=== PATIENT | female | born 1975 | race Caucasian/White ===

== ENCOUNTER 2019-11-11 14:22 | Outpatient (CLI) | payer BC ==
[~2019-11-11] VITALS: Ht 167.6 cm; Wt 74.1 kg
== END 2019-11-11 17:00 | disposition home or self-care (01) ==
LOC: LDOP 14:22
PROVIDERS: ATTEND Obstetrics & Gynecology
DX: O09.93 Supervision of high risk pregnancy, unspecified, third trimester (principal); O26.893 Other specified pregnancy related conditions, third trimester; Z51.81 Encounter for therapeutic drug level monitoring
CPT/HCPCS: 59025; 76819; 99201; G0463

== ENCOUNTER 2019-11-27 06:18 | Inpatient (IN) | payer BC ==
[~2019-11-27] VITALS: Ht 167.6 cm; Wt 75.0 kg
[2019-11-27] MEDS ORDERED: OXYTOCIN 30U/ 0.9% NaCL 500ML 500 ML IV ONE (06:20)
[2019-11-27] MEDS: D5%-LACTATED RINGERS 1,000 ML IV SCH ×3 (06:20→22:20)
[2019-11-27] MEDS ORDERED: OXYTOCIN 30U/ 0.9% NaCL 500ML 500 ML IV PRN ×2 (06:20→23:23)
[2019-11-27] MEDS ORDERED: CALCIUM CARBONATE 500 MG TAB.CHEW PO PRN (06:30)
[2019-11-27] MEDS ORDERED: FENTANYL PF 100 MCG/2ML IV PRN (06:30)
[2019-11-27] MEDS ORDERED: ONDANSETRON 2MG/ML, 2ML IVPush PRN (06:30)
[2019-11-27] MEDS ORDERED: TERBUTALINE 1 MG/ML, 1ML IVPush PRN (06:30)
[2019-11-27] MEDS ORDERED: FENTANYL PF 100 MCG/2ML IVPush PRN (06:30)
[2019-11-27] MEDS ORDERED: TERBUTALINE 1 MG/ML, 1ML SQ PRN (06:30)
[2019-11-27 06:31] VITALS: BP 116/73
[2019-11-27] MEDS ORDERED: PREN-3 PO (06:39)
[2019-11-27] MEDS ORDERED: ASPI-515 PO (06:40)
[2019-11-27] MEDS: LACTATED RINGERS 1,000 ML IV SCH ×3 (06:48→23:32)
[2019-11-27] MEDS ORDERED: OXYTOCIN 30U/ 0.9% NaCL 500ML 500 ML ONE ×2 (06:52→23:25)
[2019-11-27] MEDS ORDERED: MISOPROSTOL 25 MCG TABLET ONE ×2 (06:52→15:12)
[2019-11-27 06:57] LABS: BASOPHILS # (AUTO) 0.05 x10^3/uL (0-0.1); BASOPHILS % (AUTO) 0 % (0-1); EOSINOPHILS # (AUTO) 0.14 x10^3/uL (0-0.4); EOSINOPHILS % (AUTO) 1 % (1-7); LYMPHOCYTES # (AUTO) 2.36 x10^3/uL (1-3.4); LYMPHOCYTES % (AUTO) 19 % (22-44); MD NO; MEAN CORPUSCULAR HGB CONC 31.8 g/dL (32.4-35.8); MEAN PLATELET VOLUME 8.7 fL (7.4-10.4); MONOCYTES # (AUTO) 1.12 x10^3/uL (0.2-0.8); MONOCYTES % (AUTO) 9 % (2-9); NEUTROPHILS # (AUTO) 8.54 x10^3/uL (1.8-6.8); NEUTROPHILS % (AUTO) 70 % (42-75); PLATELET COUNT 273 x10^3/uL (130-400); RED BLOOD COUNT 5.05 x10^6/uL (3.82-5.3); RED CELL DISTRIBUTION WIDTH 14.7 % (9.6-15.2)
[2019-11-27] MEDS: MISOPROSTOL 25 MCG TABLET VG PRN ×2 (07:50→15:20)
[2019-11-27 20:00] VITALS: BP 126/83
== END 2019-11-28 07:09 | disposition home or self-care (01) | DRG 833 ==
LOC: LDIP 06:18
PROVIDERS: ADMIT Obstetrics & Gynecology; ATTEND Obstetrics & Gynecology
PROC: 3E033VJ Introduction of Other Hormone into Peripheral Vein, Percutaneous Approach (ICD-10-PCS; principal; 2019-11-27)
DX: O62.0 Primary inadequate contractions (principal); D64.9 Anemia, unspecified; O09.513 Supervision of elderly primigravida, third trimester; Z3A.39 39 weeks gestation of pregnancy
CPT/HCPCS: 36415; 85025; 86592; 86850; 86900; 87635; G0378; J2590; J7120

== ENCOUNTER 2019-12-02 11:15 | Inpatient (IN) | payer BC ==
[~2019-12-02] VITALS: Ht 167.6 cm; Wt 74.5 kg
[~2019-12-02 11:15] MED LIST: ASPI-515 PO; PREN-3 PO
[2019-12-05] MEDS ORDERED: OXYTOCIN 30U/ 0.9% NaCL 500ML 500 ML IV ONE (20:21)
[2019-12-05] MEDS ORDERED: TERBUTALINE 1 MG/ML, 1ML SQ PRN (20:30)
[2019-12-05] MEDS ORDERED: FENTANYL PF 100 MCG/2ML IVPush PRN (20:30)
[2019-12-05] MEDS ORDERED: MISOPROSTOL 25 MCG TABLET VG PRN (20:30)
[2019-12-05] MEDS ORDERED: TERBUTALINE 1 MG/ML, 1ML IVPush PRN (20:30)
[2019-12-05] MEDS ORDERED: ALUMINUM/MAG/SIMETHICONE 30 ML UDC PO PRN (20:30)
[2019-12-05] MEDS ORDERED: CALCIUM CARBONATE 500 MG TAB.CHEW PO PRN (20:30)
[2019-12-05] MEDS ORDERED: ONDANSETRON 2MG/ML, 2ML IVPush PRN (20:30)
[2019-12-05 20:35] VITALS: BP 128/80
[2019-12-05 20:41] LABS: BASOPHILS # (AUTO) 0.09 x10^3/uL (0-0.1); BASOPHILS % (AUTO) 1 % (0-1); EOSINOPHILS # (AUTO) 0.15 x10^3/uL (0-0.4); EOSINOPHILS % (AUTO) 1 % (1-7); LYMPHOCYTES # (AUTO) 2.74 x10^3/uL (1-3.4); LYMPHOCYTES % (AUTO) 21 % (22-44); MD NO; MEAN CORPUSCULAR HEMOGLOBIN 24.3 pg (27.0-34.8); MEAN CORPUSCULAR HGB CONC 32.1 g/dL (32.4-35.8); MEAN CORPUSCULAR VOLUME 75.7 fL (80-100); MONOCYTES # (AUTO) 0.83 x10^3/uL (0.2-0.8); MONOCYTES % (AUTO) 6 % (2-9); NEUTROPHILS # (AUTO) 9.35 x10^3/uL (1.8-6.8); NEUTROPHILS % (AUTO) 71 % (42-75); PLATELET COUNT 286 x10^3/uL (130-400); RED BLOOD COUNT 5.33 x10^6/uL (3.82-5.3); RED CELL DISTRIBUTION WIDTH 14.7 % (9.6-15.2)
[2019-12-05] MEDS ORDERED: LIDOCAINE 1%, 20ML ONE (20:57)
[2019-12-05] MEDS ORDERED: MISOPROSTOL 200 MCG TABLET ONE (20:57)
[2019-12-05] MEDS ORDERED: MISOPROSTOL 25 MCG TABLET ONE (20:57)
[2019-12-05] MEDS ORDERED: PLEASE ENTER HEIGHT AND WEIGHT MC SCH (21:00)
[2019-12-06] MEDS: LACTATED RINGERS 1,000 ML IV SCH ×3 (01:10→17:22)
[2019-12-06 01:24] VITALS: BP 114/81
[2019-12-06] MEDS ORDERED: MISOPROSTOL 25 MCG TABLET ONE (02:26)
[2019-12-06] MEDS: D5%-LACTATED RINGERS 1,000 ML IV SCH (04:55)
[2019-12-06] MEDS ORDERED: FENTANYL PF 100 MCG/2ML ONE ×2 (08:52→12:19)
[2019-12-06] MEDS: FENTANYL PF 100 MCG/2ML IV PRN ×2 (08:56→10:49)
[2019-12-06] MEDS ORDERED: OXYTOCIN 30U/ 0.9% NaCL 500ML 500 ML ONE (09:00)
[2019-12-06] MEDS ORDERED: OXYTOCIN 30U/ 0.9% NaCL 500ML 500 ML IV PRN (09:04)
[2019-12-06] MEDS ORDERED: LACTATED RINGERS 1,000 ML IV SCH (22:40)
[2019-12-06] MEDS ORDERED: FENTANYL/BUPIV./NS/PF 250 ML EPIDCONT SCH (22:40)
[2019-12-06] MEDS ORDERED: BUPIVACAINE 0.25% ONE (22:59)
[2019-12-06] MEDS ORDERED: FENTANYL/BUPIV./NS/PF 250 ML EPIDCONT ONE (22:59)
[2019-12-06] MEDS ORDERED: NALOXONE 0.4 MG/ML, 1ML IVPush PRN (23:00)
[2019-12-06] MEDS ORDERED: LACTATED RINGERS 1,000 ML IVBOLUS PRN (23:00)
[2019-12-06] MEDS ORDERED: EPHEDRINE 50 MG/ML, 1ML IVPush PRN (23:00)
[2019-12-07] MEDS ORDERED: TERBUTALINE 1 MG/ML, 1ML ONE ×2 (03:17→07:18)
[2019-12-07] MEDS: LACTATED RINGERS 1,000 ML IV SCH ×6 (03:51→23:40)
[2019-12-07] MEDS: D5%-LACTATED RINGERS 1,000 ML IV SCH (05:11)
[2019-12-07] MEDS ORDERED: METOCLOPRAMIDE 5 MG/ML, 2ML ONE (07:18)
[2019-12-07] MEDS ORDERED: SODIUM CITRATE/CITRIC ACID 30 ML UDC ONE (07:19)
[2019-12-07] MEDS ORDERED: LIDOCAINE-MPF 2% ,5ML ONE ×4 (07:55→07:56)
[2019-12-07] MEDS ORDERED: KETOROLAC 30 MG/1 ML ONE (07:55)
[2019-12-07] MEDS ORDERED: OXYTOCIN 10 UNITS/ML, 1ML ONE ×4 (07:55)
[2019-12-07] MEDS ORDERED: CEFAZOLIN 1,000 MG ONE ×2 (07:55)
[2019-12-07] MEDS ORDERED: SODIUM BICARBONATE 1 MEQ/ML, 50ML VIAL ONE (07:56)
[2019-12-07] MEDS ORDERED: ONDANSETRON 2MG/ML, 2ML IV PRN (08:00)
[2019-12-07] MEDS ORDERED: MORPHINE SULFATE 4 MG/ML, 1ML IVPush PRN (08:00)
[2019-12-07] MEDS ORDERED: DIPH,PERTUSS(ACELL),TET VAC/PF NC IM-VACC PRN (08:00)
[2019-12-07] MEDS ORDERED: MISOPROSTOL 200 MCG TABLET PR PRN (08:00)
[2019-12-07] MEDS: KETOROLAC 30 MG/1 ML IV SCH ×3 (08:00→19:45)
[2019-12-07] MEDS ORDERED: ACETAMINOPHEN 325 MG TABLET PO PRN (08:00)
[2019-12-07] MEDS ORDERED: MISOPROSTOL 200 MCG TABLET ONE (08:30)
[2019-12-07] MEDS ORDERED: MEPERIDINE/PF 100 MG/ML ONE (08:35)
[2019-12-07] MEDS ORDERED: FENTANYL PF 100 MCG/2ML IV PRN (09:00)
[2019-12-07] MEDS ORDERED: LABETALOL 5MG/ML, 20ML IV PRN (09:00)
[2019-12-07] MEDS ORDERED: DIPHENHYDRAMINE 50 MG/ML, 1ML IVPush PRN (09:00)
[2019-12-07] MEDS ORDERED: EPHEDRINE 50 MG/ML, 1ML IVPush PRN (09:00)
[2019-12-07] MEDS ORDERED: ONDANSETRON 2MG/ML, 2ML IVPush PRN (09:00)
[2019-12-07] MEDS ORDERED: METOCLOPRAMIDE 5 MG/ML, 2ML IVPush PRN (09:00)
[2019-12-07] MEDS ORDERED: MEPERIDINE/PF 25MG/0.5ML IVPush PRN ×2 (09:00→10:30)
[2019-12-07] MEDS ORDERED: morphine SULFATE 10 MG/ML, 1ML IVPush PRN (09:00)
[2019-12-07] MEDS ORDERED: ALBUTEROL SULFATE 2.5 MG/3 ML NPPB PRN (09:00)
[2019-12-07] MEDS: PRENATAL VIT/IRON/FA 1 EACH TABLET PO SCH (09:00)
[2019-12-07] MEDS ORDERED: OXYcodone 5 MG/5 ML ORAL.SOL UDC PO PRN (09:00)
[2019-12-07] MEDS ORDERED: OXYTOCIN 30U/ 0.9% NaCL 500ML 500 ML ONE (09:17)
[2019-12-07] MEDS ORDERED: OXYcodone 5 MG/5 ML ORAL.SOL UDC ONE (09:17)
[2019-12-07] MEDS: OXYTOCIN 30U/ 0.9% NaCL 500ML 500 ML IV SCH ×2 (09:20→17:40)
[2019-12-07] MEDS ORDERED: LACTATED RINGERS 1,000 ML IVBOLUS ONE (09:30)
[2019-12-07] MEDS ORDERED: SODIUM CITRATE/CITRIC ACID 30 ML UDC PO ONE (09:30)
[2019-12-07 10:50] VITALS: BP 130/83
[2019-12-07] MEDS: OXYcodone/APAP 5/325MG TABLET PO PRN ×3 (13:24→21:43)
[2019-12-07 15:28] VITALS: BP 122/74
[2019-12-07 15:52] LABS: BASOPHILS # (AUTO) 0.06 x10^3/uL (0-0.1); BASOPHILS % (AUTO) 0 % (0-1); EOSINOPHILS # (AUTO) 0.04 x10^3/uL (0-0.4); EOSINOPHILS % (AUTO) 0 % (1-7); LYMPHOCYTES # (AUTO) 1.99 x10^3/uL (1-3.4); LYMPHOCYTES % (AUTO) 8 % (22-44); MD SCAN; MEAN CORPUSCULAR HEMOGLOBIN 23.8 pg (27.0-34.8); MEAN CORPUSCULAR HGB CONC 31.2 g/dL (32.4-35.8); MEAN CORPUSCULAR VOLUME 76.3 fL (80-100); MEAN PLATELET VOLUME 8.6 fL (7.4-10.4); MONOCYTES # (AUTO) 1.79 x10^3/uL (0.2-0.8); MONOCYTES % (AUTO) 7 % (2-9); NEUTROPHILS # (AUTO) 21.77 x10^3/uL (1.8-6.8); NEUTROPHILS % (AUTO) 85 % (42-75); PLATELET COUNT 203 x10^3/uL (130-400); RED CELL DISTRIBUTION WIDTH 14.7 % (9.6-15.2)
[2019-12-07] MEDS: SIMETHICONE 80 MG CHEW TAB PO PRN (19:45)
[2019-12-07] MEDS: DOCUSATE 100 MG CAPSULE PO PRN (19:45)
[2019-12-07 19:59] VITALS: BP 119/77
[2019-12-08] MEDS: OXYcodone/APAP 5/325MG TABLET PO PRN ×4 (01:32→19:44)
[2019-12-08] MEDS: KETOROLAC 30 MG/1 ML IV SCH ×4 (01:32→20:36)
[2019-12-08 01:38] VITALS: BP 123/81
[2019-12-08] MEDS: OXYTOCIN 30U/ 0.9% NaCL 500ML 500 ML IV SCH ×3 (03:40→23:40)
[2019-12-08] MEDS: LACTATED RINGERS 1,000 ML IV SCH ×6 (03:40→23:40)
[2019-12-08 05:12] VITALS: BP 120/82
[2019-12-08] MEDS: DOCUSATE 100 MG CAPSULE PO PRN ×2 (07:57→19:45)
[2019-12-08] MEDS: PRENATAL VIT/IRON/FA 1 EACH TABLET PO SCH (07:57)
[2019-12-08] MEDS: SIMETHICONE 80 MG CHEW TAB PO PRN ×2 (07:57→19:12)
[2019-12-08 08:00] VITALS: BP 121/78
[2019-12-08 12:00] VITALS: BP 133/81
[2019-12-08 18:58] VITALS: BP 128/84
[2019-12-09] MEDS: KETOROLAC 30 MG/1 ML IV SCH (02:37)
[2019-12-09] MEDS: OXYcodone/APAP 5/325MG TABLET PO PRN ×3 (03:37→11:58)
[2019-12-09 07:30] VITALS: BP 124/75
[2019-12-09] MEDS: LACTATED RINGERS 1,000 ML IV SCH ×2 (07:40→09:40)
[2019-12-09] MEDS: PRENATAL VIT/IRON/FA 1 EACH TABLET PO SCH (07:49)
[2019-12-09] MEDS: SIMETHICONE 80 MG CHEW TAB PO PRN (07:49)
[2019-12-09] MEDS ORDERED: IBUPROFEN 600 MG TABLET PO PRN (08:00)
[2019-12-09] MEDS: OXYTOCIN 30U/ 0.9% NaCL 500ML 500 ML IV SCH (09:40)
[2019-12-09] MEDS ORDERED: DOCU-131 PO (11:30)
[2019-12-09] MEDS ORDERED: OXYC-302 PO (11:30)
[2019-12-09] MEDS ORDERED: IBUP-1223 PO (11:31)
== END 2019-12-09 13:45 | disposition home or self-care (01) | DRG 788 ==
LOC: LDIP 12-05 20:20 → 2NW 12-07 10:35
PROVIDERS: ADMIT Obstetrics & Gynecology; ATTEND Obstetrics & Gynecology
PROC: 10D00Z1 Extraction of Products of Conception, Low, Open Approach (ICD-10-PCS; principal; 2019-12-07)
PROC: 10907ZC Drainage of Amniotic Fluid, Therapeutic from Products of Conception, Via Natural or Artificial Opening (ICD-10-PCS; 2019-12-07)
PROC: 10H07YZ Insertion of Other Device into Products of Conception, Via Natural or Artificial Opening (ICD-10-PCS; 2019-12-07)
PROC: 3E0R3BZ Introduction of Anesthetic Agent into Spinal Canal, Percutaneous Approach (ICD-10-PCS; 2019-12-07)
PROC: 00HU33Z Insertion of Infusion Device into Spinal Canal, Percutaneous Approach (ICD-10-PCS; 2019-12-07)
PROC: 3E0P7VZ Introduction of Hormone into Female Reproductive, Via Natural or Artificial Opening (ICD-10-PCS; 2019-12-07)
PROC: 0U7C7ZZ Dilation of Cervix, Via Natural or Artificial Opening (ICD-10-PCS; 2019-12-07)
DX: O76 Abnormality in fetal heart rate and rhythm complicating labor and delivery (principal); O48.0 Post-term pregnancy; Z37.0 Single live birth; O09.523 Supervision of elderly multigravida, third trimester; O90.81 Anemia of the puerperium; D64.9 Anemia, unspecified; O09.813 Supervision of pregnancy resulting from assisted reproductive technology, third trimester; Z20.828 Contact with and (suspected) exposure to other viral communicable diseases; Z87.59 Personal history of other complications of pregnancy, childbirth and the puerperium; Z3A.40 40 weeks gestation of pregnancy
CPT/HCPCS: 36415; J3490; J7121; 82803; 85025; 86592; 86850; 86900; G0378; J0690; J1885; J2175; J3010; J2590; J2765; J7120